=== PATIENT | male | born 1965 | race Caucasian/White ===

== ENCOUNTER → 2016-12-21 | Outpatient (CLI) | payer MEDICARE ==
[~2016-12-21] MED LIST: ACTOS30 MG PO; ALBUTEROL2.5 MG/3 M INH; AMBIEN10 MG PO; GLUCOPHAGE850 MG PO; HYDROCHLOROTHIA25 MG PO; LEVEMIR FL100 UNIT/1 SUBCUT; LEXAPRO10 MG PO; NORCO 325-5 MG1 TAB PO; NOVOLOG FL100 UNIT/1 SUBCUT; PRINIVIL20 MG PO; PROVENTIL2.5 MG/3 M INH; SINGULAIR10 MG PO; SYNTHROID100 MCG PO; XANAX0.25 MG PO; ZOCOR40 MG PO
== END | disposition short-term general hospital (02) ==
LOC: CLPULM 13:20
DX: J44.1 Chronic obstructive pulmonary disease with (acute) exacerbation (principal); J96.11 Chronic respiratory failure with hypoxia; E66.9 Obesity, unspecified; E11.9 Type 2 diabetes mellitus without complications; I10 Essential (primary) hypertension; E03.9 Hypothyroidism, unspecified; G47.33 Obstructive sleep apnea (adult) (pediatric); Q33.6 Congenital hypoplasia and dysplasia of lung